=== PATIENT | male | born 1950 | race Caucasian/White ===

== ENCOUNTER 2019-09-28 20:54 | Emergency (ER) | payer OTHER ==
[~2019-09-28] VITALS: Ht 182.9 cm; Wt 124.7 kg
[2019-09-28] MEDS ORDERED: LANTUS100 UNIT/M SUBQ (21:04)
[2019-09-28] MEDS ORDERED: METFORMIN HCL500 M3 PO (21:05)
[2019-09-28 21:35] LABS: ABSOLUTE EOSINOPHILS 0.1 thou/uL (0.0-0.7); ABSOLUTE LYMPHOCYTES 1.9 thou/uL (0.8-5.3); ABSOLUTE MONOCYTES 0.8 thou/uL (0.0-1.2); ABSOLUTE NEUTROPHILS 7.2 thou/uL (1.6-8.1); BASOPHILS 0.4 %; EOSINOPHILS 1.4 %; HEMATOCRIT 43.7 % (42.0-52.0); HEMOGLOBIN 14.8 gm/dL (14.0-18.0); LYMPHOCYTES 18.7 %; MCH 29.3 pg (26.0-34.0); MCHC 33.9 g/dL (28.0-37.0); MCV 86.5 fL (80.0-100.0); MONOCYTES 7.8 %; MPV 8.5 fl. (7.2-11.1); NUCLEATED RBCS 0 /100WBC; PLATELET COUNT* 299 thou/uL (150-400); POLYS 71.7 %; RBC 5.06 mil/uL (4.50-6.00); RDW-CV 14.3 % (10.5-14.5); WBC 10.1 thou/uL (4.0-11.0)
[2019-09-28 21:37] LABS: URINE BILIRUBIN NEGATIVE (Negative); URINE BLOOD NEGATIVE (Negative); URINE CLARITY CLEAR; URINE COLOR YELLOW; URINE GLUCOSE-RANDOM 3+ (Negative); URINE KETONES TRACE (Negative); URINE LEUKOCYTES-REFLEX NEGATIVE (Negative); URINE NITRITE-REFLEX NEGATIVE (Negative); URINE PROTEIN NEGATIVE (Negative); URINE UROBILINOGEN 0.2 E.U./dl (0.2-1.0)
[2019-09-28 21:44] LABS: CALCIUM 9.2 mg/dL (8.5-10.1); CREATININE 1.1 mg/dL (0.6-1.3); POTASSIUM 4.3 mmol/L (3.5-5.1)
[2019-09-28 21:45] LABS: INR 0.9; PROTIME 9.4 Seconds (9.20-11.50)
[2019-09-28 21:54] LABS: ALBUMIN 3.3 g/dL (3.4-5.0); TOTAL BILIRUBIN 0.3 mg/dL (<0.1-1.0); TOTAL PROTEIN 7.3 g/dL (6.4-8.2)
[2019-09-29 01:43] VITALS: BP 122/79
--- NOTE | 2019-09-29 13:01 | EKG ---
[place] [address] ELECTROCARDIOGRAM REPORT Name: RONI THOMPSON [id number] Admission: 09/28/19 Attend Phys: Discharge: 09/29/19 Date of : 48 Report #: [id number] THIS REPORT FOR: //name// [facility] ED Test Date: 2019-09-28 Test Time: 20:55:17 Pat Name: RONI THOMPSON Department: Room: Gender: M Delivery Rep: PR : 1950 Requested By: Lyndsey Arauz Order Number: [id number] : Allen Burris Measurements Intervals [place] Rate: 93 P: 53 AR: 165 QRS: 19 QRSD: 103 T: 101 QT: 351 QTc: 437 Interpretive Statements Sinus rhythm Anteroseptal infarct, old Nonspecific T abnormalities, lateral leads No previous ECG available for comparison Electronically Signed On 09-29-2019 13:00:15 MULE DRIVER by Allen Burris [email or web address] <ELECTRONICALLY SIGNED> By: Allen Burris MD, [facility] 09/29/19 [phone] 54 Allen Burris MD, FACC /EPI
== END 2019-09-29 01:43 | disposition home or self-care (01) ==
LOC: M.ERS 20:54
PROVIDERS: Emergency Medicine
DX: M54.6 Pain in thoracic spine (principal); E11.9 Type 2 diabetes mellitus without complications; Z79.4 Long term (current) use of insulin; Z88.5 Allergy status to narcotic agent; Z88.0 Allergy status to penicillin; M25.521 Pain in right elbow; W18.2XXA Fall in (into) shower or empty bathtub, initial encounter; Y92.89 Other specified places as the place of occurrence of the external cause; Y93.89 Activity, other specified; Y99.8 Other external cause status

== ENCOUNTER 2019-10-14 20:11 | Inpatient (IN) | payer OTHER ==
[~2019-10-14] VITALS: Ht 182.9 cm; Wt 122.9 kg
--- NOTE | ~2019-10-14 | EKG ---
[place] [address] ELECTROCARDIOGRAM REPORT Name: RONI THOMPSON Room: [facility]#: [id number] Admission: Attend Phys: Discharge: Date of : 48 Date of Service: 10/14/192018 Report #: [id number] THIS REPORT FOR: cc: FAM - No family physician/PCP Colin Shaw MD ~ THIS REPORT FOR: //name// [facility] ED Test Date: 2019-10-14 Test Time: 20:19:21 Pat Name: RONI THOMPSON Department: Room: Gender: M Public Improvement Inspector: JANE : 1950 Requested By: Lyndsey Arauz Order Number: [id number] MD: Measurements Intervals [place] Rate: 88 P: 50 AL: 158 QRS: -9 QRSD: 104 T: 124 QT: 382 QTc: 463 Interpretive Statements Sinus rhythm Ventricular bigeminy Anteroseptal infarct, old Borderline repolarization abnormality Compared to ECG 09/28/2019 20:55:17 Ventricular premature complex(es) now present T-wave abnormality no longer present Myocardial infarct finding still present [email or web address] By: 18 18 Epiphany Epiphany, /GERMÁN
[~2019-10-14 20:11] MED LIST: LANTUS100 UNIT/M SUBQ; METFORMIN HCL500 M3 PO
[2019-10-14 20:15] VITALS: BP 164/74
[2019-10-14 21:09] LABS: ABSOLUTE EOSINOPHILS 0.2 thou/uL (0.0-0.7); ABSOLUTE LYMPHOCYTES 1.8 thou/uL (0.8-5.3); ABSOLUTE MONOCYTES 0.9 thou/uL (0.0-1.2); ABSOLUTE NEUTROPHILS 7.3 thou/uL (1.6-8.1); BASOPHILS 0.4 %; EOSINOPHILS 1.5 %; HEMATOCRIT 40.8 % (42.0-52.0); HEMOGLOBIN 13.9 gm/dL (14.0-18.0); LYMPHOCYTES 17.9 %; MCH 29.5 pg (26.0-34.0); MCHC 34.1 g/dL (28.0-37.0); MCV 86.6 fL (80.0-100.0); MONOCYTES 8.9 %; MPV 8.5 fl. (7.2-11.1); NUCLEATED RBCS 0 /100WBC; PLATELET COUNT* 296 thou/uL (150-400); POLYS 71.3 %; RBC 4.72 mil/uL (4.50-6.00); WBC 10.2 thou/uL (4.0-11.0)
[2019-10-14 21:10] LABS: INFLUENZA A ANTIGEN Negative (Negative); INFLUENZA B ANTIGEN Negative (Negative)
[2019-10-14 21:17] LABS: CALCIUM 8.4 mg/dL (8.5-10.1); CREATININE 0.9 mg/dL (0.6-1.3)
[2019-10-14 21:20] LABS: INR 0.9; PROTIME 9.3 Seconds (9.20-11.50)
[2019-10-14 21:27] LABS: ALBUMIN 3.2 g/dL (3.4-5.0); TOTAL BILIRUBIN 0.2 mg/dL (<0.1-1.0); TOTAL PROTEIN 6.7 g/dL (6.4-8.2)
[2019-10-14 21:59] LABS: URINE BILIRUBIN NEGATIVE (Negative); URINE BLOOD NEGATIVE (Negative); URINE CLARITY CLEAR; URINE COLOR YELLOW; URINE GLUCOSE-RANDOM 3+ (Negative); URINE KETONES 1+ (Negative); URINE LEUKOCYTES-REFLEX NEGATIVE (Negative); URINE NITRITE-REFLEX NEGATIVE (Negative); URINE PROTEIN NEGATIVE (Negative); URINE UROBILINOGEN 0.2 E.U./dl (0.2-1.0)
[2019-10-15] VITALS (9 sets, daily range): BP systolic 121–194; BP diastolic 77–104
[2019-10-15 10:29] LABS: AMMONIA < 10 umol/L (11-32); ANION GAP 10 mmol/L (7-16); BUN 22 mg/dL (7-18); CALCIUM 8.5 mg/dL (8.5-10.1); CHLORIDE 105 mmol/L (98-107); CO2 28 mmol/L (21-32); CREATININE 0.8 mg/dL (0.6-1.3); GLUCOSE 86 mg/dL (70-99); POTASSIUM 3.6 mmol/L (3.5-5.1); SODIUM 143 mmol/L (136-145)
[2019-10-15] MEDS ORDERED: PRINIVIL5 MG PO (15:10)
[2019-10-15] MEDS ORDERED: CELEXA 10 MG TA10 M1 PO (15:10)
[2019-10-15] MEDS ORDERED: SUPER THERAVIT1 EACH PO (15:11)
[2019-10-15] MEDS ORDERED: PREVACID30 MG PO (15:11)
[2019-10-15] MEDS ORDERED: TRAMADOL 50 MG50 MG PO (15:12)
[2019-10-15 15:33] LABS: % SATURATION 29 % (20-39); IRON 87 ug/dL (50-175)
[2019-10-16 03:57] LABS: URINE BILIRUBIN NEGATIVE (Negative); URINE BLOOD NEGATIVE (Negative); URINE CLARITY CLEAR; URINE COLOR YELLOW; URINE GLUCOSE-RANDOM 2+ (Negative); URINE KETONES TRACE (Negative); URINE LEUKOCYTES-REFLEX NEGATIVE (Negative); URINE NITRITE-REFLEX NEGATIVE (Negative); URINE PROTEIN NEGATIVE (Negative); URINE SPECIFIC GRAVITY >= 1.030 (1.005-1.030); URINE UROBILINOGEN 0.2 E.U./dl (0.2-1.0)
[2019-10-16 04:07] LABS: GLYCOHEMOGLOBIN (HGB A1C) 10.6 % (4.8-5.6)
[2019-10-16 05:22] VITALS: BP 120/78
[2019-10-16 05:23] VITALS: BP 107/87; BP 123/81
[2019-10-16 05:25] LABS: CALCIUM 8.3 mg/dL (8.5-10.1); CREATININE 0.8 mg/dL (0.6-1.3)
[2019-10-16 07:40] VITALS: BP 146/65
[2019-10-16 16:00] VITALS: BP 132/62
[2019-10-16 20:00] VITALS: BP 152/92
[2019-10-17 07:37] LABS: INR 0.9; PROTIME 9.7 Seconds (9.20-11.50)
[2019-10-17 07:50] VITALS: BP 128/86
[2019-10-17 11:00] LABS: CSF CLARITY CLEAR; CSF COLOR COLORLESS; VOLUME 12 ml
[2019-10-17 11:08] LABS: CSF GLUCOSE 104 mg/dl (40-70)
[2019-10-17 11:21] LABS: CSF WBC 0 /mm3 (0-10)
[2019-10-17 11:22] LABS: CSF RBC 0 /mm3
[2019-10-17 12:06] VITALS: BP 128/86
[2019-10-17] MEDS ORDERED: IPRAT-ALBUT 0.5-3 ML INH (12:21)
[2019-10-17] MEDS ORDERED: LEVAQUIN 750 M750 MG PO (12:22)
[2019-10-17] MEDS ORDERED: LIDODERM1 EACH TOP (12:23)
[2019-10-17 16:00] VITALS: BP 142/56
[2019-10-17 20:40] VITALS: BP 148/94
[2019-10-18 05:22] LABS: ABSOLUTE EOSINOPHILS 0.3 thou/uL (0.0-0.7); ABSOLUTE LYMPHOCYTES 1.8 thou/uL (0.8-5.3); ABSOLUTE NEUTROPHILS 9.2 thou/uL (1.6-8.1); BASOPHILS 0.3 %; EOSINOPHILS 2.2 %; HEMATOCRIT 42.4 % (42.0-52.0); HEMOGLOBIN 14.3 gm/dL (14.0-18.0); LYMPHOCYTES 14.8 %; MCH 29.1 pg (26.0-34.0); MCHC 33.9 g/dL (28.0-37.0); MCV 86.1 fL (80.0-100.0); MONOCYTES 8.2 %; MPV 8.4 fl. (7.2-11.1); NUCLEATED RBCS 0 /100WBC; PLATELET COUNT* 352 thou/uL (150-400); POLYS 74.5 %; RBC 4.92 mil/uL (4.50-6.00); RDW-CV 14.1 % (10.5-14.5); WBC 12.4 thou/uL (4.0-11.0)
[2019-10-18 06:01] LABS: CALCIUM 8.8 mg/dL (8.5-10.1); CREATININE 0.7 mg/dL (0.6-1.3); POTASSIUM 3.8 mmol/L (3.5-5.1)
[2019-10-18 07:40] VITALS: BP 159/87
[2019-10-18 10:30] VITALS: BP 128/86
== END 2019-10-18 10:15 | DRG 73 ==
LOC: M.ERS 20:11 → M.TBA-ER 23:37 → M.3W 23:37
PROVIDERS: Emergency Medicine; Internal Medicine; ADMIT Family Medicine
PROC: 00JU3ZZ Inspection of Spinal Canal, Percutaneous Approach (ICD-10-PCS; principal; 2019-10-17)
DX: E11.43 Type 2 diabetes mellitus with diabetic autonomic (poly)neuropathy (principal); J15.9 Unspecified bacterial pneumonia; S32.049A Unspecified fracture of fourth lumbar vertebra, initial encounter for closed fracture; M48.061 Spinal stenosis, lumbar region without neurogenic claudication; R29.6 Repeated falls; F15.11 Other stimulant abuse, in remission; F12.10 Cannabis abuse, uncomplicated; F43.9 Reaction to severe stress, unspecified; I10 Essential (primary) hypertension; R32 Unspecified urinary incontinence; H53.8 Other visual disturbances; Z87.891 Personal history of nicotine dependence; Z98.84 Bariatric surgery status; Z83.3 Family history of diabetes mellitus; Z82.49 Family history of ischemic heart disease and other diseases of the circulatory system; Z81.8 Family history of other mental and behavioral disorders; Z79.84 Long term (current) use of oral hypoglycemic drugs; Z79.4 Long term (current) use of insulin; Z88.1 Allergy status to other antibiotic agents; Z88.5 Allergy status to narcotic agent; Z88.0 Allergy status to penicillin; X58.XXXA Exposure to other specified factors, initial encounter; Y93.89 Activity, other specified; Y92.89 Other specified places as the place of occurrence of the external cause; Y99.8 Other external cause status

== ENCOUNTER 2019-12-11 17:28 | Inpatient (IN) | payer OTHER ==
[~2019-12-11] VITALS: Ht 182.9 cm; Wt 116.6 kg
[~2019-12-11 17:28] MED LIST changes: +CELEXA 10 MG TA10 M1 PO; +IPRAT-ALBUT 0.5-3 ML INH; +LEVAQUIN 750 M750 MG PO; +LIDODERM1 EACH TOP; +PREVACID30 MG PO; +PRINIVIL5 MG PO; +SUPER THERAVIT1 EACH PO; +TRAMADOL 50 MG50 MG PO
[2019-12-11 17:30] VITALS: BP 117/43
[2019-12-11 18:32] LABS: ABSOLUTE EOSINOPHILS 0.2 thou/uL (0.0-0.7); ABSOLUTE LYMPHOCYTES 1.8 thou/uL (0.8-5.3); ABSOLUTE MONOCYTES 0.9 thou/uL (0.0-1.2); ABSOLUTE NEUTROPHILS 6.8 thou/uL (1.6-8.1); BASOPHILS 0.5 %; EOSINOPHILS 2.1 %; HEMATOCRIT 39.9 % (42.0-52.0); HEMOGLOBIN 13.6 gm/dL (14.0-18.0); LYMPHOCYTES 18.8 %; MCH 29.5 pg (26.0-34.0); MCHC 34.2 g/dL (28.0-37.0); MCV 86.4 fL (80.0-100.0); MONOCYTES 9.2 %; MPV 8.6 fl. (7.2-11.1); NUCLEATED RBCS 0 /100WBC; PLATELET COUNT* 293 thou/uL (150-400); POLYS 69.4 %; RBC 4.61 mil/uL (4.50-6.00); RDW-CV 15.4 % (10.5-14.5); WBC 9.8 thou/uL (4.0-11.0)
[2019-12-11 18:42] LABS: CALCIUM 8.4 mg/dL (8.5-10.1); CREATININE 1.1 mg/dL (0.6-1.3); POTASSIUM 4.4 mmol/L (3.5-5.1)
[2019-12-11 18:53] LABS: ALBUMIN 2.7 g/dL (3.4-5.0); TOTAL BILIRUBIN 0.2 mg/dL (<0.1-1.0); TOTAL PROTEIN 6.3 g/dL (6.4-8.2)
[2019-12-11 21:46] VITALS: BP 146/61
[2019-12-11 22:03] VITALS: BP 154/79
[2019-12-12 00:02] VITALS: BP 162/74
[2019-12-12 04:06] VITALS: BP 114/54
--- NOTE | 2019-12-12 04:35 | NUR ---
ASSUMED CARE OF PT 12/11/19 AT 2136. PT A&OX4, ON ROOM AIR, VSS. PT SR WITH PVC'S ON MONITOR. ASSESSMENTS AND HOURLY ROUNDINGS COMPLETE. WILL CONTINUE TO MONITOR.
[2019-12-12 08:30] VITALS: BP 136/85
[2019-12-12 12:12] VITALS: BP 163/57
--- NOTE | 2019-12-12 15:34 | NUR ---
RAF called pt dtr Krystin to complete assessment, introduce self, and discuss safe dc planning/placement. Pt dtr said that the family is in agreement with placement necessary for pt care and that they have Medicaid pending since 3 weeks ago. SW to contact [facility] to ask about further details of the status of medicaid application. Pt/family preference for [facility]; SW faxed referral to admissions at the facility. SW to continue to follow to assist with safe dc planning and pending placement.
[2019-12-12 16:08] VITALS: BP 147/53
--- NOTE | 2019-12-12 18:54 | NUR ---
I ASSUMED CARE OF THE PATIENT AT 0700. HE IS ALERT AND ORIENTED X4 AND IS UP WITH ASSIST OF 1. BED IS IN THE LOW LOCKED POSITION AND CALL LIGHT IS IN REACH. HOURLY ROUNDING IS COMPLETED AND PATIENT NEEDS ARE MET. PAIN IS DENIED. HE HAS A GOOD APPETITE AND SUGAR IS CONTROLLED WITH INSULIN. PATIENT TRANSPORTED WELL FOR TESTING AND IS WEARING A PULL UP. HE USES A URINAL, BUT STILL HAS SOME STRESS INCONT. WILL CONTINUE TO MONITOR.
[2019-12-12 20:18] VITALS: BP 168/52
[2019-12-13] VITALS (7 sets, daily range): BP systolic 125–171; BP diastolic 56–68
[2019-12-13 03:50] LABS: ABSOLUTE EOSINOPHILS 0.4 thou/uL (0.0-0.7); ABSOLUTE LYMPHOCYTES 2.5 thou/uL (0.8-5.3); ABSOLUTE NEUTROPHILS 6.3 thou/uL (1.6-8.1); BASOPHILS 0.4 %; HEMATOCRIT 37.4 % (42.0-52.0); HEMOGLOBIN 12.8 gm/dL (14.0-18.0); LYMPHOCYTES 24.5 %; MCH 29.5 pg (26.0-34.0); MCHC 34.2 g/dL (28.0-37.0); MCV 86.2 fL (80.0-100.0); MONOCYTES 9.6 %; MPV 8.7 fl. (7.2-11.1); NUCLEATED RBCS 0 /100WBC; PLATELET COUNT* 269 thou/uL (150-400); POLYS 61.5 %; RBC 4.34 mil/uL (4.50-6.00); RDW-CV 15.1 % (10.5-14.5); WBC 10.2 thou/uL (4.0-11.0)
[2019-12-13 03:56] LABS: CALCIUM 8.2 mg/dL (8.5-10.1); CREATININE 0.9 mg/dL (0.6-1.3); POTASSIUM 4.3 mmol/L (3.5-5.1)
--- NOTE | 2019-12-13 04:43 | NUR ---
ASSUMED CARE OF PT 12/12/19 AT APPROX 1930. PT A&OX4, ON ROOM AIR, VSS, SR WITH PVCS AND BIGEMINY ON THE MONITOR. PAIN MED REQUESTED AND GIVEN ORDERED. ASSESSMENTS AND HOURLY ROUNDINGS COMPLETED. WILL CONTINUE TO MONITOR.
--- NOTE | 2019-12-13 10:42 | NUR ---
[facility] CALLED AND SAID THEY WERE SEEING PATIENT PRIOR TO HOSPITALIZATION. THEY WERE SEEING PATIENT FOR NURSING, SOCIAL WORK, PHYSICAL AND OCCUPATIONAL THERAPIES. [facility] [phone]; [phone]
--- NOTE | 2019-12-13 12:13 | NUR ---
FAXED REFERRAL TO [facility]. WILL CONFIRM WITH [facility] THAT THEY RECEIVED AND BED AVAILABILITY. [facility] [phone]; [phone] [facility]
--- NOTE | 2019-12-13 17:00 | 2DMMODE ---
[place] [address] 2 D/M-MODE ECHOCARDIOGRAM Name: RONI THOMPSON Room: [address] IN [facility]#: [id number] Admission: 12/11/19 Attend Phys: Esperanza Chand, Discharge: Date of : 48 Date of Service: 12/13/19 1659 Report #: [id number] THIS REPORT FOR: cc: Bernard Sena Russell J. DO Liston, Michael J. MD [facility] ~ APPROVED REPORT Study performed: 12/13/2019 15:25:11 EXAM: Comprehensive 2D, Doppler, and color-flow Echocardiogram Patient Location: In-Patient Room #: [facility] Status: routine BSA: 2.38 HR: 66 bpm BP: 156/67 mmHg Rhythm: NSR Other Information Study Quality: Good Indications dizziness, bronchitis, inability to ambulate 2D Dimensions IVSd: 10.50 (7-11mm) LVOT Diam: 20.85 (18-24mm) LVDd: 64.53 mm PWd: 12.48 (7-11mm) Ascending Ao: 33.84 (22-36mm) LVDs: 55.16 (25-40mm) Aortic Root: 31.81 mm Volumes Left Atrial Volume (Systole) LA ESV Index: 31.00 mL/m2 Aortic Valve AoV Peak Farzad.: 1.26 m/s AO Peak Gr.: 6.34 mmHg LVOT Max P.27 mmHg AO Mean Gr.: 3.48 mmHg LVOT Mean P.44 mmHg LVOT Max V: 0.90 m/s AO V2 VTI: 23.52 cm LVOT Mean V: 0.54 m/s HOLLY (VTI): 2.74 cm2 LVOT V1 VTI: 18.91 [place] [address] 2 D/M-MODE ECHOCARDIOGRAM Name: RONI THOMPSON Room: [address] IN .R.#: [id number] Admission: 12/11/19 Attend Phys: Esperanza Chand, Discharge: Date of : 48 Date of Service: 12/13/19 1659 Report #: [id number] Mitral Valve E/A Ratio: 1.23 MV Decel. Time: 157.47 ms MV E Max Farzad.: 1.17 m/s MV PHT: 45.67 ms MVA (PHT): 4.82 cm2 TDI E/Lateral E': 13.00 E/Medial E': 14.63 Medial E' Farzad.: 0.08 m/s Lateral E' Farzad.: 0.09 m/s Pulmonary Valve PV Peak Farzad.: 0.91 m/s PV Peak Gr.: 3.33 mmHg Tricuspid Valve RAP Estimate: 5.00 mmHg TR Peak Gr.: 17.07 mmHg RVSP: 22.00 mmHg PA Pressure: 22.00 mmHg Left Ventricle Left ventricle is moderately dilated. There is global hypokinesis without obvious focal wall motion abnormality. There is normal left ventricular wall thickness. Left ventricular systolic function is moderately decreased. LVEF is 30-35%. Transmitral Doppler flow pattern suggests impaired LV relaxation. Right Ventricle The right ventricle is normal size. The right ventricular systolic function is normal. Atria Left atrium is mildly dilated. The right atrium size is normal. Aortic Valve Mild aortic valve sclerosis. No aortic regurgitation is present. There is no aortic valvular stenosis. Mitral Valve The mitral valve is normal in structure. Trace mitral regurgitation. No evidence of mitral valve stenosis. Tricuspid Valve The tricuspid valve is normal in structure. No pulmonary hypertension. [place] [address] 2 D/M-MODE ECHOCARDIOGRAM Name: RONI THOMPSON Room: [address] IN [facility]#: [id number] Admission: 12/11/19 Attend Phys: Esperanza Chand, Discharge: Date of : 48 Date of Service: 12/13/19 1659 Report #: [id number] Pulmonic Valve The pulmonary valve is normal in structure. There is no pulmonic valvular regurgitation. Great Vessels The aortic root is normal in size. IVC is normal in size and collapses >50% with inspiration. Pericardium There is no pericardial effusion. <Conclusion> Left ventricle is moderately dilated. There is normal left ventricular wall thickness. Left ventricular systolic function is moderately decreased. LVEF is 30-35%. Transmitral Doppler flow pattern suggests impaired LV relaxation. There is global hypokinesis without obvious focal wall motion abnormality. Left atrium is mildly dilated. Mild aortic valve sclerosis. Trace mitral regurgitation. No pulmonary hypertension. Trace tricuspid regurgitation. IVC is normal in size and collapses >50% with inspiration. <ELECTRONICALLY SIGNED> By: Hector Sotomayor MD, FACC 12/13/19 [phone] Hector Sotomayor MD, FACC /INF
--- NOTE | 2019-12-13 18:19 | NUR ---
PATIENT RESTING IN BED. PATIENT IS UP WITH NASEEM ASSIST WITH WALKER. PATIENT HAS FAIR APPETITE. PATIENT DENIES ANY PAIN. PATIENT ON HEART MONITOR WITH DR MIGUEL SINGLETON AWARE. PATIENT DENIES ANY NEEDS AT THIS TIME. CALL LIGHT WITHIN REACH. WILL CONTINUE TO MONITOR.
[2019-12-14 04:00] VITALS: BP 159/65
--- NOTE | 2019-12-14 04:27 | NUR ---
ASSUMED CARE OF PT 12/13/19 AT APPROX 1930. PT A&OX4, PT ON ROOM AIR, VSS, UP WITH ASSIST X1 WITH GB AND WALKER. BROOKEEMINY ON MONITOR. PAIN MEDS REQUESTED AND GIVEN ORDERED. ASSESSMENTS AND HOURLY ROUNDINGS COMPLETED. WILL CONTINUE TO MONITOR.
[2019-12-14 08:00] VITALS: BP 139/84
[2019-12-14 10:43] LABS: CALCIUM 8.2 mg/dL (8.5-10.1); CREATININE 0.9 mg/dL (0.6-1.3); MAGNESIUM 1.7 mg/dL (1.8-2.4); POTASSIUM 4.2 mmol/L (3.5-5.1)
[2019-12-14 10:49] LABS: ABSOLUTE EOSINOPHILS 0.4 thou/uL (0.0-0.7); ABSOLUTE LYMPHOCYTES 2.3 thou/uL (0.8-5.3); ABSOLUTE MONOCYTES 0.9 thou/uL (0.0-1.2); BASOPHILS 0.3 %; EOSINOPHILS 4.3 %; HEMATOCRIT 37.8 % (42.0-52.0); LYMPHOCYTES 23.4 %; MCH 29.8 pg (26.0-34.0); MCHC 34.5 g/dL (28.0-37.0); MCV 86.3 fL (80.0-100.0); MONOCYTES 9.5 %; MPV 8.3 fl. (7.2-11.1); NUCLEATED RBCS 0 /100WBC; PLATELET COUNT* 252 thou/uL (150-400); POLYS 62.5 %; RBC 4.38 mil/uL (4.50-6.00); RDW-CV 14.9 % (10.5-14.5); WBC 9.6 thou/uL (4.0-11.0)
[2019-12-14 11:45] VITALS: BP 140/58
[2019-12-14 15:53] VITALS: BP 130/71
--- NOTE | 2019-12-14 17:20 | NUR ---
FAXED [facility] THE UPDATED CLINICALS AND THERAPY NOTES TO [facility] IN ADMISSIONS. SHE REVIEWED REFERRAL YESTERDAY BUT WANTED ADDITIONAL INFORMATION. MEDICAID PENDING. SNF REFERRAL WITH THE POSSIBILITY OF LTC. DCP TO FOLLOW. [facility] [phone]; [phone] [facility]MISS[facility]
[2019-12-14 19:30] VITALS: BP 147/60
[2019-12-15] VITALS (7 sets, daily range): BP systolic 124–150; BP diastolic 47–80
[2019-12-15 04:11] LABS: CHOLESTEROL 136 mg/dL (<200); HDL CHOLESTEROL 36 mg/dL (>40); LDL CHOLESTEROL 77 mg/dL (<100); TC:HDL 3.8 Ratio (Not establshd); TRIGLYCERIDE 119 mg/dL (<150); VLDL 24 mg/dL (<40)
[2019-12-15 04:12] LABS: SERUM ASSESSMENT CLEAR
--- NOTE | 2019-12-15 07:20 | NUR ---
VSS. SEE MAR. SEE CHARTING. FALL PRECAUTIONS IN PLACE. HOURLY ROUNDING FOR SAFETY.
--- NOTE | 2019-12-15 15:00 | NUR ---
RECEIVED NOTICE THAT PATIENT'S INSURANCE IS NOT IN NETWORK FOR INTERMEDIATE AT [facility]. CONTACTED ISHMAEL/ADMISSIONS AT [facility] TO SEE IF THEY COULD ACCEPT PATIENT FOR SNF CARE WITH MEDICAID PENDING. THEY ARE NOT ACCEPTING NEW PATIENTS OF TODAY AND UNTIL FURTHER NOTICE. WILL CONTACT FAMILY REGARING THE PLACEMENT OPTIONS WITH [facility] INSURANCE.
--- NOTE | 2019-12-15 17:03 | NUR ---
PATIENCE CINEMA OPERATOR TALKED WITH MEL KING (DAUGHTER & DPOA) [phone] REGARDING CORRECTION FACILITIES AND PARKING ASSISTANT CARE. [facility] [place] [place] AND [facility]. [facility] CALLED [facility] IT'S AN INDEPENDENT LIVING FACILITY AND [facility] IS ONLY ACCEPTING PATIENTS THAT ARE PRIVATE PAY. [facility] IS NOT TAKING SNF PATIENT'S THAT DON'T HAVE A LTC PLAN. EMA TO CONTINUE TO LOOK FOR A CORRECTION AND PARKING ASSISTANT CARE FACILITY.
--- NOTE | 2019-12-15 18:30 | NUR ---
ASSUMED PT CARE AT 0700, PT A&O X4, VSS, UP WITH ASSIST X1 AND WALKER, INCONTINENT AT TIMES. DECK BUILDER TRACING BIGEMINY, PT ASYMPTOMATIC, PT DID HAVE A 7 RUN BEAT OF VTACH THIS SHIFT, DR RIVERA NOTIFIED, PT COMPLETED PART 1 OF STRESS TEST THIS SHIFT, RESULTS PENDING, HOURLY ROUNDING COMPLETED.
[2019-12-16 04:06] VITALS: BP 141/49
--- NOTE | 2019-12-16 05:52 | NUR ---
ASSESSMENTS COMPLETED CHARTED, MEDICATIONS ADMINISTERED PER MAR. HOURLY ROUNDING FOR SAFETY. CALL LIGHT WITHIN REACH. CONT PLAN OF CARE.
[2019-12-16 08:00] VITALS: BP 156/61
--- NOTE | 2019-12-16 11:31 | NUR ---
ASSUMED CARE OF PATIENT THIS AM AT 0730. PATIENT IS ALERT AND ORIENTED, HE DENIES PAIN. PATIENT IS CONCERNED ABOUT THE 2ND PART OF HIS STRESS TEST. TELE SHOWS SR WITH BIGEMINEY PVCS. PATIENT ASSISTED UP TO THE CHAIR FOR BREAKFAST. HE REMAINS INCONTINENT OF URINE. NO FALLS OR INJURY.
[2019-12-16 12:17] VITALS: BP 124/44
[2019-12-16 16:26] VITALS: BP 134/60
[2019-12-16 20:00] VITALS: BP 147/60
[2019-12-17] VITALS: BP 135/40
[2019-12-17 04:00] VITALS: BP 140/42
[2019-12-17 05:06] LABS: HEMOGLOBIN 12.4 gm/dL (14.0-18.0); MCH 29.2 pg (26.0-34.0); MCHC 33.4 g/dL (28.0-37.0); MCV 87.4 fL (80.0-100.0); MPV 9.3 fl. (7.2-11.1); RBC 4.23 mil/uL (4.50-6.00); RDW-CV 14.9 % (10.5-14.5); WBC 11.5 thou/uL (4.0-11.0)
[2019-12-17 05:23] LABS: ALBUMIN 2.6 g/dL (3.4-5.0); CALCIUM 8.6 mg/dL (8.5-10.1); CREATININE 0.9 mg/dL (0.6-1.3); MAGNESIUM 1.9 mg/dL (1.8-2.4); POTASSIUM 4.2 mmol/L (3.5-5.1); TOTAL BILIRUBIN 0.3 mg/dL (<0.1-1.0); TOTAL PROTEIN 6.1 g/dL (6.4-8.2)
--- NOTE | 2019-12-17 05:46 | NUR ---
ASSUMED CARE OF PT AFTER REPORT AT 1930. PT A&OX4. VSS. PHYSICAL ASSESSMENT COMPLETED AND CHARTED. PT ON RA. PT TRACING BIGEMINY ON TELE. PT UP WITH 1 ASSIST TO RECLINER. PT DENIES ANY PAIN. FALL PRECAUTIONS IN PLACE. CALL LIGHT WITHIN REACH.
--- NOTE | 2019-12-17 07:15 | NUR ---
CHANGE OF SHIFT, BEDSIDE REPORT GIVEN PATIENT SEEN AT BEDSIDE, IN BED RESTING ASSUMED PATIENT CARE
[2019-12-17 08:00] VITALS: BP 142/58
[2019-12-17 11:56] VITALS: BP 145/55
[2019-12-17 16:38] VITALS: BP 115/45
[2019-12-17 20:00] VITALS: BP 138/47
[2019-12-18] VITALS: BP 113/45
[2019-12-18 03:53] VITALS: BP 137/64
--- NOTE | 2019-12-18 07:00 | NUR ---
ASSUMED CARE OF PT AFTER REPORT AT 1930. PT A&OX4. VSS. PHYSICAL ASSESSMENT COMPLETED AND CHARTED. PT ON RA. PT TRACING BIGEMINY ON TELE. PT UP WITH 1 ASSIST. PT COMPLAINED OF HEADACHE-MED GIVEN PER MAR. FOR 2ND PART OF STRESS TEST TODAY. FALL PRECAUTIONS IN PLACE. CALL LIGHT WITHIN REACH.
[2019-12-18 09:19] VITALS: BP 107/41
--- NOTE | 2019-12-18 10:53 | NUR ---
PT OF UNIT TO NUC MED.
--- NOTE | 2019-12-18 12:49 | CON ---
[address] [address] CONSULTATION Name: RONI THOMPSON Room: [address] IN M.R.#: [id number] Admission: 12/11/19 Attend Phys: Esperanza Chand MD Discharge: Date of : 48 Report #: [id number] THIS REPORT FOR: //name// cc: Bernard Sena Russell J. DO ~ THIS REPORT FOR: //name// CC: Esperanza Sena MD INDICATION: Abnormal echocardiogram. HISTORY OF PRESENT ILLNESS: The patient is a very pleasant 69-year-old gentleman who was admitted to the hospital on the 12/11 with increased difficulties with activities of daily living. During this hospitalization, the patient had an echocardiogram. This showed moderate left ventricular systolic dysfunction with dilated left ventricle. Telemetry monitoring shows persistent bigeminy. A CTA of the chest showed evidence of coronary calcifications. The patient has risk factors including diabetes and dyslipidemia. There is a remote history of tobacco use. The patient denies any chest pain, tightness or pressure. He is not having orthopnea or paroxysmal nocturnal dyspnea. PAST MEDICAL HISTORY: 1. Type 2 diabetes mellitus, insulin requiring. 2. Gastric bypass, remotely. 3. Prostate surgery 2003. 4. Remote colon resection. FAMILY HISTORY: Noncontributory. SOCIAL HISTORY: The patient quit smoking remotely. He drinks alcohol rarely. PHYSICAL EXAMINATION: VITAL SIGNS: Blood pressure 130/71, pulse 86. GENERAL: This is a moderately obese, pleasant white male, in no distress. Mood and affect appropriate. HEENT: The patient is wearing glasses. Extraocular muscles intact. Mucous membranes are moist. NECK: Shows no jugular venous distention. There are no carotid bruits. CHEST: Reveals clear lung larios without wheezes or rales. CARDIOVASCULAR: Reveals an irregularly irregular rhythm. I do not appreciate gallop or murmur. ABDOMEN: Reveals normal bowel sounds. The abdomen is soft, [place] [address] CONSULTATION Name: RONI THOMPSON Room: [address] IN [facility].#: [id number] Admission: 12/11/19 Attend Phys: Esperanza Chand MD Discharge: Date of : 48 Report #: [id number] EXTREMITIES: Shows no edema. SKIN: Warm and dry. LABORATORY DATA: A 12-lead EKG shows sinus rhythm with PVCs in a pattern of bigeminy. There are no pathologic Q-waves. Labs are reviewed. Sodium 136, potassium 4.2, chloride 102, bicarbonate 28, BUN 13, creatinine 0.9, serum glucose 311. LFTs within normal limits. Troponins less than 0.06. NT-proBNP 1754. TSH 5.339, free T4 0.94. Coags within normal limits. Hemoglobin 13.0, white blood cell count 9.6, and platelet count 252,000. Chest x-ray shows no acute cardiopulmonary abnormality. IMPRESSION AND RECOMMENDATIONS: 1. Moderate left ventricular systolic dysfunction. Etiology is not clear. He does have evidence of coronary artery disease on a CT scan. I would like to obtain stress testing to rule out occult ischemia. We will adjust medications for heart failure. 2. Bigeminy, presently asymptomatic. We will follow clinically at this point in time. I do not see any indication for further antiarrhythmic treatment at this time. 3. Diabetes, treatment per primary physician. 4. Possible dyslipidemia. We will check fasting lipid profile. 5. Coronary artery disease. Stress testing ordered as outlined above. Would recommend daily aspirin. <ELECTRONICALLY SIGNED> By: Hector Sotomayor MD, FACC 12/18/19 1249 1712 1739Hector Sotomayor MD, FACC /nt
--- NOTE | 2019-12-18 13:08 | NUR ---
Nutrition: Pt admitted with dizziness, seen for LOS. Wt: 259#. CHO controlled diet. Labs: albumin 2.6, prealb 18.2, BG 200s. RX: insulin, statin, lasix, carvedilol. H/o DM, PVD, depression. No nutrition interventions needed at this time. GOALS: >75% of meals consumed, better BG control. RD available. Mild to low nutrition risk.
--- NOTE | 2019-12-18 14:36 | NUR ---
FAXED SNF REFERRAL TO [facility]. TALKED WITH YANCY/LIAISON AT [facility] REGARDING PATIENT INITIALLY NEEDING LONG-TERM BUT EVENTUALLY WOULD NEED COMPUTER REPAIR TECHNICIAN CARE. THEY WILL REVIEW FOR THEIR LONG-TERM BUT DID NOT HAVE COMPUTER REPAIR TECHNICIAN CARE AT THIS TIME. CALLED MEL KING (DAUGHTER & DPOA) REGARDING PLACING PATIENT AT [facility] FOR LONG-TERM BUT WOULD NEED TO FIND COMPUTER REPAIR TECHNICIAN CARE PLACEMENT. SHE WAS AGREEABLE TO [facility] FOR SKILLED AND FAMILY WILL CONTINIUE SEEKING A COMPUTER REPAIR TECHNICIAN CARE FACILITY NEAR [place], [place] OR [place], [place]. DCP TO FOLLOW [facility] FOR AVAILABILITY. [facility] [phone]; [phone]
--- NOTE | 2019-12-18 14:50 | NUR ---
SW spoke with rehabilitation services coordinator, uSe, who discussed inpt rehab considering but given pt need for possible LTC placement at dc, pt may be more appropriate for SNF. SW and dc senior media planner to continue to follow to assist with dc planning; finding SNF options for a back up plan if inpt rehab ultimately unable to accept, also pending insurance auth.
[2019-12-18 16:00] VITALS: BP 107/30
--- NOTE | 2019-12-18 17:42 | CARDNUC ---
[place] [address] CARDIAC NUCLEAR IMAGING REPORT Name: RONI THOMPSON Room: [address] IN [facility]#: [id number] Admission: 12/11/19 Attend Phys: Esperanza Chand, Discharge: Date of : 48 Date of Service: 12/18/19 1740 Report #: [id number] THIS REPORT FOR: cc: Bernard Sena Russell J. DO Liston, Michael J. MD [facility] ~ APPROVED REPORT Imaging Protocol: Stress Tc-99m/Rest Tc-99m 2 days Study performed: 12/14/2019 17:14:00 Indication: bigeminy, elevated calcium Patient Location: In-Patient Room #: [facility] Stress Tech: Piedad Farris Stress Nurse: Marimar Muñoz RN Ht: 6 ft 0 in Wt: 259 lbs BSA: 2.38 m2 BMI: 35.12 Medical History Medical History: HTN, Diabetes Medications: lisinopril Allergies: penicillin, codeine, cephalexin Cardiac Risk Factors: Age, DM, HTN, Tobacco History (Former) Exercise History: Sedentary Resting Data Rest SPECT myocardial perfusion imaging was performed in supine position 60 minutes following the intravenous injection of 35.1 mCi of Tc-99m Sestamibi. Time of rest injection: 09:30 Date: 12/18/2019 Administration Route: IV Administration Site: Left Wrist Pharmacologic Stress Pharmacologic stress test was performed by injecting Regadenoson 0.4 mg IV push over 10-15 seconds immediately followed by the intravenous injection of 33.0 mCi of Tc-99m Sestamibi. Time of stress injection: 13:55 Date: 12/15/2019 Administration Route: IV Administration Site: Right Arm Heart Rate at time of stress injection: 76 bpm. Gated Stress SPECT was performed 45 [place] [address] CARDIAC NUCLEAR IMAGING REPORT Name: RONI THOMPSON Room: [address] IN [facility]#: [id number] Admission: 12/11/19 Attend Phys: Esperanza Chand, Discharge: Date of : 48 Date of Service: 12/18/19 1740 Report #: [id number]. The images were gated to evaluate regional wall motion and calculate left ventricular ejection fraction. Stress Test Details Stress Test: Pharmacologic stress testing performed using 0.4 mg of regadenoson per 5 mL given IV over 10 seconds. Reason for pharmacologic stress test: physical limitation. HR Max Heart Rate (APMHR): 150 bpm Resting HR: 72 bpm Target HR (85% APMHR): 127 bpm Max HR Achieved: 80 bpm % of APMHR: 53 Recovery HR: 78 bpm BP Resting BP: 111/80 mmHg Max BP: 89/67 mmHg Recovery BP: 113/56 mmHg ECG Resting ECG: sinus rhythm with PVCs in a pattern of bigeminy. Stress ECG: sinus rhythm with PVCs in a pattern of bigeminy. ST Change: None Recovery ECG: sinus rhythm with PVCs in a pattern of bigeminy. Recovery ST Change: None Clinical Reason for Termination: Completed protocol Exercise duration: 0 min sec Exercise capacity: 1 METs The patient tolerated Lexiscan infusion without significant cardiac symptoms. Nurse Comments pt too weak and unsteady to walk on treadmill. Wheelchair bound. Zofran 4 mg ivp given for nausea and vomiting. 60 mg caffeine given for n/v. Symptoms resolved Stress ECG Conclusion The baseline 12-lead EKG show sinus rhythm with PVCs in a pattern of bigeminy. There were no significant ST segment or T-wave abnormalities noted. EKGs obtained during and post Lexiscan infusion showed sinus rhythm with persistent bigeminy[place] [address] CARDIAC NUCLEAR IMAGING REPORT Name: JAYRONIEN Room: [address] IN M.R.#: [id number] Admission: 12/11/19 Attend Phys: Esperanza Chand, Discharge: Date of : 48 Date of Service: 12/18/19 1740 Report #: [id number] segment or T-wave changes were noted. Study Quality Study: Good Artifact: Mild Diaphragmatic artifact Study Data Post stress, the left ventricular ejection was 25%.. Perfusion There is photopenia noted in the inferior wall that appears somewhat more pronounced on stress than resting images suggesting possible prior infarct with kareen-infarct ischemia. There is a focal distal lateral wall reversible defect of mild intensity. Wall Motion The left ventricle is dilated. There is severe global hypokinesis. Nuclear Conclusion ECG Findings: negative for ischemia Clinical Findings: negative for ischemia Nuclear Findings: positive for ischemia Exercise Capacity: not assessed Left Ventricular Function: abnormal Risk Study: high Perfusion studies suggest the possibility of ischemia involving parts of the inferior inferolateral wall. There is severe global hypokinesis with significant left ventricular systolic dysfunction. This is a high risk study. <Conclusion> The baseline 12-lead EKG show sinus rhythm with PVCs in a pattern of bigeminy. There were no significant ST segment or T-wave abnormalities noted. EKGs obtained during and post Lexiscan infusion showed sinus rhythm with persistent bigeminy. No significant ST segment or T-wave changes were noted. <ELECTRONICALLY SIGNED> By: Hector Sotomayor MD, FACC 12/18/19 [phone] Hector Sotomayor MD, FACC /INF
[2019-12-18 18:50] LABS: CALCIUM 8.3 mg/dL (8.5-10.1); POTASSIUM 4.4 mmol/L (3.5-5.1)
[2019-12-18 18:52] LABS: APTT 25.7 Seconds (25.0-31.3)
[2019-12-18 20:00] VITALS: BP 123/47
[2019-12-19] VITALS (11 sets, daily range): BP systolic 118–169; BP diastolic 44–92
--- NOTE | 2019-12-19 04:35 | NUR ---
ASSUMED PT CARE AT APPROX 1930. PT IS AWAKE AND ORIENTED X4. PT IS TRACING BIGEMINY ON THE BEARING PRESS MACHINE OPERATOR. ASSESSMENT DONE AND CHARTED. PT IS ADVISED TO HAVE NOTHING BY MOUTH AFTER MIDNIGHT FOR CARDIAC CATH IN AM. PT REMAINED HIGH FALL PRECAUTIONS IN PLACE. HOURLY ROUNDING DONE FOR PT SAFETY. CALL LIGHT WITHIN REACH.
--- NOTE | 2019-12-19 11:28 | NUR ---
PT OFF UNIT TO INTERNATIONAL TRADE TEACHER.
--- NOTE | 2019-12-19 15:04 | NUR ---
PT RETURN FROM [facility], RIGHT RADIAL TR BAND IN PLACE.
--- NOTE | 2019-12-19 15:16 | NUR ---
SPOKE WITH CARDS INSPECTOR SEMICONDUCTOR WAFER MONAE. INFORMED ME THAT PT HAS BEEN IN ASYMPTOMATIC BIGEMENY SINCE ADMISSION AND OK TO SET LOW HR LIMIT BELOW 60 AND TURN OF DAVID ALRAM. WILL CONTINUE TO ASSESS.
--- NOTE | 2019-12-19 15:46 | NUR ---
FAXED REFERRAL TO [facility]. THEY HAVE POSSIBLE AVAILABILITY IN THEIR ROUGHER MACHINE OPERATOR CARE FACILITY AT [facility]. SPOKE TO DAUGHTER (MEL) REGARDING THE FACILITIES AVAILABLE AND SHE WAS AGREEABLE. NOTIFIED HER THAT [facility] HAS DOCUMENTED THAT PATIENT HAS USED HIS NO [facility] SNF DAYS FROM 10/18-11/09/19. THE NEXT 21-48 DAYS WILL BE $160/DAY. FAMILY HAS APPLIED FOR MEDICAID. CONTACTED IVELISSE/PATIENT ORTHO NURSE AT [facility] REGARDING STATUS OF MEDICAID APPLICATION. SHE SAID PATIENT'S ACCOUNT IN [facility] AND THAT FAMILY NOTIFIED. DCP TO FOLLOW. FAXED [facility] TRANSFER FORM. [facility] [phone]; [phone]
--- NOTE | 2019-12-19 16:36 | NUR ---
TR BAND DEFLATED AND TRANPARENT TIGHT DRESSING APPLIED TO RIGHT RADIAL SITE. DR. WARREN ASSESS PT AT BEDSIDE AND INSTRUCT NO NEED FOR FURTHER FREQUENT VITALS.
--- NOTE | 2019-12-19 19:13 | NUR ---
BEDSIDE REPORT GIVEN TO NIGHT RN TATE. PT BECAME MORE CONFUSED DURING SHIFT CHANGE AND PULLED OUT IV X2. TATE WILL START NEW IV WHEN SHE GETS A CHANCE.
[2019-12-20] VITALS: BP 146/78
[2019-12-20 04:00] VITALS: BP 133/44
[2019-12-20 04:48] LABS: HEMATOCRIT 35.9 % (42.0-52.0); HEMOGLOBIN 12.4 gm/dL (14.0-18.0); MCH 29.6 pg (26.0-34.0); MCHC 34.5 g/dL (28.0-37.0); MCV 85.9 fL (80.0-100.0); MPV 9.1 fl. (7.2-11.1); RBC 4.18 mil/uL (4.50-6.00); RDW-CV 15.1 % (10.5-14.5); WBC 16.8 thou/uL (4.0-11.0)
[2019-12-20 05:22] LABS: CALCIUM 7.9 mg/dL (8.5-10.1); CREATININE 0.9 mg/dL (0.6-1.3); POTASSIUM 3.8 mmol/L (3.5-5.1)
[2019-12-20 05:35] LABS: TROPONIN-I LEVEL 6.04 ng/mL (<0.06)
--- NOTE | 2019-12-20 05:52 | NUR ---
ASSESSMENT COMPLETED CHARTED, MEDICATIONS ADMINISTERED PER MAR. HOURLY ROUNDING COMPLETED FOR SAFETY. CONTINUE PLAN OF CARE. CALL LIGHT WITHIN REACH.
[2019-12-20 07:35] VITALS: BP 143/83
[2019-12-20 10:06] VITALS: BP 143/83
--- NOTE | 2019-12-20 10:51 | EKG ---
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1950 Requested By: Rian Browning Order Number: [id number] Reading MD: Rian Browning Measurements Intervals [place] Rate: 97 P: 74 [place]: 141 QRS: 16 QRSD: 102 T: 107 QT: 398 QTc: 506 Interpretive Statements Sinus rhythm Ventricular bigeminy Nonspecific repol abnormality, lateral leads Baseline wander in lead(s) II,III,aVL,aVF,V2,V3,V5,V6 Compared to ECG 12/19/2019 15:31:20 Early repolarization now present Electronically Signed On 12-20-2019 10:49:47 CDT by Rian Browning [email or web address] <ELECTRONICALLY SIGNED> By: Rian Browning MD, [facility] 12/20/19 1049 9 9 Rian Browning MD, [facility] /EPI
[2019-12-20 12:05] VITALS: BP 161/58
--- NOTE | 2019-12-20 12:35 | NUR ---
CONFIRMED WITH [facility] THAT THEY CAN ACCEPT PATIENT TODAY, 12/20/19. THEY HAVE INSURANCE AUTHORIZATION AND CONFIRMATION REGARDING PATENT'S MEDICAID SPEND DOWN FROM THE FAMILY. THEY HAVE ARRANGED A WHEELCHAIR TRANSPORT AT 16:00. NURSING UNIT NOTIFIED. CHART COPY REQUESTED. LEFT VOICE MAIL MESSAGE WITH MEL KING (DAUGHTER & DPOA), [phone], DCP TO FOLLOW. DISCHARGE ORDERS, SUMMARY, DA-124C AND HOSPITAL TO FACILITY COVID-[address] WATSON FAXED TO [facility] [phone]; [phone] [facility] [phone]
--- NOTE | 2019-12-20 12:50 | CARD ---
[address] [address] CARDIAC CATH REPORT Name: RONI THOMPSON Room: [address] IN ..#: [id number] Admission: 12/11/19 Attend Phys: Esperanza Chand MD Discharge: Date of : 48 Report #: [id number] THIS REPORT FOR: //name// cc: Bernard Sena Russell J. 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 Hector Sotomayor, Shingle Inspector; Dr. Rian Browning, Environmental Engineering Technician; Hortencia Razo, RT(R), Scrub; Chau Abebe, JESSICA, Monitor; Agustina Hensley RN, Category Planner Procedures Performed Left Heart Cath w/wo Coronaries; Bare Metal Stent Placement LAD;T-R Band Indication Dyspnea, CardiomyopathyPositive stress test Risk Factors Diabetes Admission/Lab Medications/Medications given during procedure Glycoprotein IllbIlla Inhibitors, Heparin Unfract. Procedure Narrative The patient was brought electively to the Cardiac Catheterization Laboratory and was prepped and draped in a sterile manner. The right wrist was infiltrated with 1% Lidocaine subcutaneous anesthesia. A 6 sheath was inserted into the right radial artery. Coronary angiography was performed using coronary diagnostic catheters. The right coronary system was accessed and visualized with a Diagnostic catheter. The left coronary system was accessed and visualized with a Diagnostic catheter. Left ventricular/Aortic Valve gradient assessed via catheter pullback. Closure device was deployed with a 6 Fr vascband. The patient tolerated the procedure well and there were no complications associated with the procedure. [place] [address] CARDIAC CATH REPORT Name: RONI THOMPSON Room: [address] IN [facility]#: [id number] Admission: 12/11/19 Attend Phys: Esperanza Chand MD Discharge: Date of : 48 Report #: [id number] Intraoperative Conscious Sedation Sedation start time: 12:06 Case end Time: 14:12 Fentanyl 50.0 mcg Versed 2.0 mg Fluoro Time: 29.5 minutes Dose: DAP [id number] cGycm2 5813 mGy Contrast Type and Amount: visipaque 200ml Coronary Angiography The patient's coronary anatomy is right dominant. Diagnostic Cath Left Main The left main coronary artery is short and normal. LAD The left anterior descending coronary artery has 40% narrowing proximally. There is a 70% narrowing in the mid to distal LAD after the takeoff of a second diagonal branch. The distal vessel is free of significant disease. Diagonal 1 The first diagonal branch is free of significant disease. Diagonal 2 The second diagonal branch is free of significant disease. Circumflex The circumflex coronary artery appears relatively normal in the proximal mid and distal portion. OM1 A small first obtuse marginal branch is normal. OM2 A moderate size second obtuse marginal branches free of significant disease. OM3 A moderate size third obtuse marginal branch is free of significant disease. Right Coronary The right coronary artery is diffusely plaqued with up to 50% narrowing proximally. R PDA The right PDA has 50% proximal narrowing. RPLV The right posterior lateral LV branch has a 50% mid vessel narrowing. Left Ventriculography Left Ventriculography was not performed. Hemodynamics The aortic pressure is 142/62 mmHg with a mean of 85 mmHg. The left ventricular pressure is 142/17 mmHg with a mean of mmHg. The left ventricular end diastolic pressure is 20 mmHg. There was no gradient across the aortic valve upon pullback[place] [address] CARDIAC CATH REPORT Name: RONI THOMPSON Room: [address] IN [facility]#: [id number] Admission: 12/11/19 Attend Phys: Esperanza Chand MD Discharge: Date of : 48 Report #: [id number] Anticoagulation was achieved with Heparin. bolus of iv aggrastat given Percutaneous coronary intervention was performed on the mid left anterior descending artery segment. The lesion stenosis prior to intervention was 90% with VERENICE 3 flow. A xblad4.0 Guide Catheter was used to engage the lm ostium. A bmw Interventional Guidewire was used to cross the lesion. BALLOON DILATION A Balloon catheter 2.5 x 8 mm was inserted and inflated up to 12atm for 10seconds. Repeat angiography revealed the following post-dilatation results: 50% stenosis with small dissection. STENT DEPLOYMENT A bare metal stent 2.5 x 12 mm was inserted and inflated up to 12atm for 15seconds. Repeat angiography revealed the following post-stent deployment results: 0% stenosis. Unable to advance drug eluting stents in both [place] and Xience brands despite using a joselito wire. Sizes ranged from 2.25 to 2.75 mm and lenghts from 12 mm to 23 mm. Difficulty appearred to be secondary to tortuosity of lad and calcification. Finally was able to advance 2.5 x 12 mm bare metal stent by deep throating the guiding catheter. A second stent was required to cover the stenosis which was a 2.5 x 8 mm bare metal stent so that there was minimal overlapp between the 2 stents. Additional predilatation was performed prior to stent placement with the 2.5 x 8 mm balloon up to 12 bekah. Final angiography reveals 0 % stenosis with VERENICE 3 flow. Conclusion 1. Two-vessel coronary artery disease as outlined above. 2. Left ventricular end-diastolic pressure elevated consistent with acute on chronic diastolic heart failure. 3. Left ventriculogram not performed. 4. 90% stenosis in the mid lad 5. successful placement of 2 bare metal stents in the mid lad Recommendations 1. Continue dual antiplatelet therapy for one year. 2. Continue aggressive risk factor modification. Medications [place] [address] CARDIAC CATH REPORT Name: RONI THOMPSON Room: [address] IN [facility].#: [id number] Admission: 12/11/19 Attend Phys: Esperanza Chand MD Discharge: Date of : 48 Report #: [id number] Diagnostic Cath Approved by: Hector Sotomayor MD Date/Time: 12/19/2019 16:38:27 <ELECTRONICALLY SIGNED> By: Rian Browning MD, FACC 12/20/19 1249 1249 1249Davichristiana Browning MD, FACC /INF
--- NOTE | 2019-12-20 12:56 | CON ---
[address] [address] CONSULTATION Name: RONI THOMPSON Room: [address] ADM IN M.R.#: [id number] Admission: 12/11/19 Attend Phys: Esperanza Chand MD Discharge: Date of : 48 Report #: [id number] THIS REPORT FOR: //name// cc: Bernard Sena Russell J. DO ~ THIS REPORT FOR: //name// CC: Esperanza Sena DATE OF SERVICE: 12/12/2019 HISTORY OF PRESENT ILLNESS: This is a 69-year-old male patient who presented with somewhat of an unusual history. He says that he started having difficulty with ambulation some time ago. He does not know when it happened. I reviewed his records and it looks like this patient was here in October and that is the time he had ambulation difficulty. He said he was in the bathroom and could not get up from a sitting position. Dr. Corcoran saw and I followed up this patient, and there was a question of normal pressure hydrocephalus and we did a spinal tap to drain fluid out to see if there was any improvement and the patient had no improvement. He said he is doing about the same and is not much different, but his family became concerned because he could not get up from the sitting down position. He does not think his memory is any different than before. This patient was asked to see a neurosurgeon as an outpatient to get their opinion also, but does not look like he saw them. He does have a prior history of gastric bypass surgery. He does have some chronic back pain. He had a CT of the lumbar and thoracic spine during the last admission that showed a question of fracture. At this time, he is also complaining of dizziness. He does have a history of diabetes, prostate surgery, gastric bypass. Last time when he came in, his protein was 46 and his CSF was acellular. He did have vitamin B12 done and that was unremarkable. His vitamin D was slightly low. His copper was also ____ low, but I am not sure whether he is taking any supplemental copper or not. That was his relevant 14-point review of systems. PAST MEDICAL HISTORY: Positive for evaluation for normal pressure hydrocephalus, which was negative. FAMILY HISTORY: Unremarkable. SOCIAL HISTORY: He lives with his family. He needs help from them. PHYSICAL EXAMINATION: Indicate he is alert, responsive, able to follow simple command. His memory is somewhat diminished, but he thinks it is baseline. His cranial nerve examination, 2-12 looks mostly unremarkable. He moves all four extremities, and his strength and position sense [place] [address] CONSULTATION Name: RONI THOMPSON Room: [address] IN M.R.#: [id number] Admission: 12/11/19 Attend Phys: Esperanza Chand MD Discharge: Date of : 48 Report #: [id number] reflexes are diminished. His pulses are difficult to feel. He did not have any cerebellar sign, neither sljvhn-vy-bvvt nor xoku-rb-zdxy. I could not look at his fundus very well. There is no meningeal sign. There is no thyroid mass. He is reasonably a well-developed individual. He does not have any dysmorphic features of eyes, ears, and face. His vision and hearing looks adequate. His blood pressure is 147/53, respirations 17, pulse is 80, temperature is 98.1. I reviewed his MRIs, which are mostly unremarkable. IMPRESSION: Longstanding ambulation difficulty. Normal pressure hydrocephalus was mostly excluded because of last spinal tap. 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 He does have mild vitamin D deficiency that is definitely an incidental finding, although may have to be corrected. I think we need to workup his spine a little bit more to see if there is any pathology there. I ordered that workup with MRI of lumbar and thoracic spine. I discussed all of this with the patient. We will get him evaluated by Physical Therapy/Occupational Therapy, but I do not think neurologically you can do a whole lot with this patient until we find something with the spine in this patient. I will repeat the copper level. About 50 minutes of time was spent taking care of this patient today and majority of that time was spent counseling and coordinating. <ELECTRONICALLY SIGNED> By: Sanju Parker MD 12/20/19 1256 1634 193Sanju Parker MD /nt
[2019-12-20] MEDS ORDERED: SPIRONOLACTONE25 MG PO (13:03)
[2019-12-20] MEDS ORDERED: COZAAR100 MG PO (13:03)
[2019-12-20] MEDS ORDERED: COREG25 MG PO (13:03)
[2019-12-20] MEDS ORDERED: LANTUS100 UNIT/M SUBQ (13:03)
[2019-12-20] MEDS ORDERED: LIPITOR10 MG PO (13:03)
[2019-12-20] MEDS ORDERED: PLAVIX 75 MG TA75 MG PO (13:03)
[2019-12-20] MEDS ORDERED: MELATONIN5 M1 PO (13:03)
[2019-12-20 13:55] VITALS: BP 143/83
--- NOTE | 2019-12-20 16:15 | NUR ---
PT A&OX4, SOMETIMES SLOW TO ANSWER. VSS. PT BIGEMINY ON MONITOR, STRIP ON CHART. PT IS ACCUCHECK, INSULIN ADMINISTERED DIRECTED. AM INSULIN HELD R/T NAUSEA AND PT NOT EATING BREAKFAST. PT ON ROOM AIR, O2 SAT 96%. IV TO L HAND DC'D PRIOR TO PT LEAVING UNIT. NO BLEEDING/SWELLING NOTED AT SITE. PT INCONTINENT OF BLADDER AT TIMES, PT WEARS BRIEF. PT UP ASSIST X1 W/ WALKER AND GAIT BELT. PT TO OCEAN EXPORT COORDINATOR YESTERDAY, STENTS X2 PLACED. BANDAGE TO R WRIST C/D/I. PT ASSISTED TO CLEAN GOWN, SOILED CLOTHING PLACED IN BAG AND SENT WITH PT TO SNF. PT TRANSPORTED BY BY NURSING STAFF. ALL PERSONAL BELONGINGS AND AL PAPERWORK ACCOMPANY PT. PT TO [facility] BY [facility]I. REPORT CALLED TO MONAE LAZAR. [phone].
--- NOTE | 2019-12-22 12:16 | EKG ---
[place] [address] ELECTROCARDIOGRAM REPORT Name: RONI THOMPSON Room: [address] IN M..#: [id number] Admission: 12/11/19 Attend Phys: Esperanza Chand, Discharge: 12/20/19 Date of : 48 Date of Service: 12/11/19 1735 Report #: [id number] THIS REPORT FOR: //name// [facility] ED Test Date: 2019-12-11 Test Time: 17:35:15 Pat Name: RONI THOMPSON Department: Room: [facility] Gender: M Razor Sharpener: CCD : 1950 Requested By: Ariana Rice Order Number: [id number] MD: Allen Burris Measurements Intervals [place] Rate: 86 P: -17 [place]: 141 QRS: 7 QRSD: 97 T: 121 QT: 403 QTc: 482 Interpretive Statements Sinus rhythm Ventricular bigeminy Borderline repolarization abnormality Compared to ECG 10/14/2019 20:19:21 Myocardial infarct finding no longer present Electronically Signed On 12-12-2019 10:06:59 CDT by Allen Burris [email or web address] <ELECTRONICALLY SIGNED> By: Allen Burris MD, FACC 12/12/19 1006 1735 1735 Allen Burris MD, FACC /EPI
--- NOTE | 2019-12-22 12:25 | EKG ---
[place] [address] ELECTROCARDIOGRAM REPORT Name: RONI THOMPSON Room: [address] DIS IN M.R.#: [id number] Admission: 12/11/19 Attend Phys: Esperanza Chand, Discharge: 12/20/19 Date of : 48 Date of Service: 12/19/19 1531 Report #: [id number] THIS REPORT FOR: //name// [facility] Test Date: 2019-12-19 Test Time: 15:31:20 Pat Name: RONI THOMPSON Department: Room: [address] Gender: M Assembler: : 1950 Requested By: Rian Browning Order Number: [id number] Reading MD: Hector Sotomayor Measurements Intervals [place] Rate: 90 P: 68 [place]: 144 QRS: -6 QRSD: 99 T: 74 QT: 423 QTc: 518 Interpretive Statements Sinus rhythm Ventricular bigeminy Probable left atrial enlargement Minimal ST elevation, anterior leads Compared to ECG 12/11/2019 17:35:15 ST (T wave) deviation now present Electronically Signed On 12-19-2019 16:15:18 CDT by Hector Sotomayor [email or web address] <ELECTRONICALLY SIGNED> By: Hector Sotomayor MD, FACC 12/19/19 1615 1531 1531 Hector Sotomayor MD, FACC /EPI
== END 2019-12-20 16:00 | DRG 248 ==
LOC: M.ERS 17:28 → M.2W 20:18 → M.TBA-ER 20:18 → M.2W 21:36
PROVIDERS: Internal Medicine; Internal Medicine Cardiovascular Disease; Physician Assistant; ADMIT Internal Medicine
PROC: 4A023N7 Measurement of Cardiac Sampling and Pressure, Left Heart, Percutaneous Approach (ICD-10-PCS; principal; 2019-12-19)
PROC: 02703EZ Dilation of Coronary Artery, One Artery with Two Intraluminal Devices, Percutaneous Approach (ICD-10-PCS; principal; 2019-12-19)
PROC: B211YZZ Fluoroscopy of Multiple Coronary Arteries using Other Contrast (ICD-10-PCS; principal; 2019-12-19)
DX: I25.10 Atherosclerotic heart disease of native coronary artery without angina pectoris (principal); I50.43 Acute on chronic combined systolic (congestive) and diastolic (congestive) heart failure; E44.0 Moderate protein-calorie malnutrition; I47.1 Supraventricular tachycardia; M47.9 Spondylosis, unspecified; G89.29 Other chronic pain; M54.9 Dorsalgia, unspecified; J20.9 Acute bronchitis, unspecified; F32.9 Major depressive disorder, single episode, unspecified; I49.3 Ventricular premature depolarization; M48.061 Spinal stenosis, lumbar region without neurogenic claudication; E11.51 Type 2 diabetes mellitus with diabetic peripheral angiopathy without gangrene; Z98.84 Bariatric surgery status; Z86.010 Personal history of colon polyps; Z90.49 Acquired absence of other specified parts of digestive tract; Z79.4 Long term (current) use of insulin; Z79.84 Long term (current) use of oral hypoglycemic drugs; Z79.899 Other long term (current) drug therapy; Z88.1 Allergy status to other antibiotic agents; Z88.5 Allergy status to narcotic agent; Z88.0 Allergy status to penicillin